=== PATIENT | female | born 1960 ===

== ENCOUNTER 2017-07-31 09:31 | Emergency (ER) | payer MEDICAID, OTHER ==
[2017-07-31 09:38] VITALS: BMI 34.6
[2017-07-31 09:41] VITALS: BP 152/85; PULSE 75; RESP 18; TEMP 97.7; O2SAT 100
--- NOTE | 2017-07-31 09:58 | C.PDOC ---
History Of Present Illness POSSIBLE BED BUG EXPOSURE CO B/L FOREARM, R THIGH RASH AND ITCH SINCE YEST. ONSET AFTER PLACING MATTRESS ON FLOOR. +SICK CONTACT W SAME ONSET OF SX WHEN SLEPT IN PATIENT'S ROOM. DENIES CHEST, HAND, RASH. HO HIV, VL UNDETC. COMPLIANT W HAART EXAM NAD NONTOXIC SKIN +SCATTERED URTICARIA B/L FOREARMS BLANCHING. NO EXCORIATION, LINEAR LESIONS. HANDS CLEAR, NO INTERTRIG LESIONS REMAINDE RNEG MDM PT ADVISED RISKS BENEFITS PREDNISONE VS TOPICAL STEROID, BENADRYL. PS WILL USE TOPICAL STEROID, BENADRYL. PROBABLE BEDBUGS, NO FINDINGS C/W SCARBIES. ADVISED NEED FOR ENVIRONMENTAL CLEANING, OTC MEDS FOR ITCH PRN Time Seen by Provider: 07/31/17 09:54 Chief Complaint (Nursing): Abnormal Skin Integrity History Per: Patient History/Exam Limitations: no limitations Onset/Duration Of Symptoms: Days (1 day) Current Symptoms Are (Timing): Still Present Past Medical History Reviewed: Historical Data, Nursing Documentation, Vital Signs Vital Signs: Last Vital Signs Temp 97.7 F 07/31/17 09:38 Pulse 75 07/31/17 09:38 Resp 18 07/31/17 09:38 BP 152/85 H 07/31/17 09:38 Pulse Ox 100 07/31/17 10:06 - Medical History PMH: Asthma, HIV, HTN - [facility] Procedures INJECT/INFUSE NEC (07/30/14) OPEN BIOPSY OF SOFT TISSUE (07/21/13) RADICAL EXCIS SKIN LES (07/21/13) Family History: States: No Known Family Hx - Social History Hx Tobacco Use: Yes Hx Alcohol Use: No Hx Substance Use: No - Immunization History Hx Tetanus Toxoid Vaccination: No Hx Influenza Vaccination: Yes Hx Pneumococcal Vaccination: No Review Of Systems Except As Marked, All Systems Reviewed And Found Negative. Constitutional: Negative for: Fever Cardiovascular: Negative for: Chest Pain Respiratory: Negative for: Shortness of Breath Gastrointestinal: Negative for: Nausea, Vomiting Skin: Positive for: Rash (itchy rash to the bilateral forearms, right thigh) Neurological: Negative for: Weakness, Numbness Physical Exam - Physical Exam Appears: Non-toxic, No Acute Distress Skin: Warm, Dry, Other ((+) Scattered urticaria to the bilateral forearms, blanching. No excoriations or linear lesions. Hands clear. No intertrigo lesions.) Eye(s): bilateral: Normal Inspection, PERRL, EOMI Oral Mucosa: Moist Lips: Normal Appearing Throat: Normal, No Erythema Respiratory: Normal Breath Sounds, No Rales, No Rhonchi, No Stridor, No Wheezing Extremity: Normal ROM, Capillary Refill (<2 secs), No Swelling Neurological/Psych: Oriented x3, Normal Speech ED Course And Treatment O2 Sat by Pulse Oximetry: 100 (RA) Pulse Ox Interpretation: Normal Medical Decision Making Medical Decision Making: NOTE: PT ADVISED RISKS BENEFITS PREDNISONE VS TOPICAL STEROID, BENADRYL. PS WILL USE TOPICAL STEROID, BENADRYL. PROBABLE BEDBUGS, NO FINDINGS C/W SCABIES. ADVISED NEED FOR ENVIRONMENTAL CLEANING, OTC MEDS FOR ITCH PRN Disposition Counseled Patient/Family Regarding: Diagnosis, Need For Followup - Disposition Referrals: YOUR,PMD [Other] Disposition: HOME/ ROUTINE Disposition Time: 10:01 Condition: GOOD Additional Instructions: TOPICAL OVER THE COUNTER STEROID CREAM TO AFFECTED AREAS, CALAMINE LOTION DIRECTED, BENADRYL DIRECTED FOR ITCH Instructions: Bed Bugs (ED) Forms: [employer] ([employer]) - Clinical Impression Clinical Impression: Urticaria, Insect bite of multiple sites with local reaction - Scribe Statement The provider has reviewed the documentation as recorded by the Obedibangi Farris Provider Attestation: All medical record entries made by the Scribe were at my direction and personally dictated by me. I have reviewed the chart and agree that the record accurately reflects my personal performance of the history, physical exam, medical decision making, and the department course for this patient. I have also personally directed, reviewed, and agree with the discharge instructions and disposition.
== END 2017-07-31 10:09 | disposition home or self-care (01) ==
LOC: C.ER 09:31
DX: L50.9 Urticaria, unspecified (principal); S50.862A Insect bite (nonvenomous) of left forearm, initial encounter; S50.861A Insect bite (nonvenomous) of right forearm, initial encounter; L08.9 Local infection of the skin and subcutaneous tissue, unspecified; W57.XXXA Bitten or stung by nonvenomous insect and other nonvenomous arthropods, initial encounter